=== PATIENT | female | born 2000 | race Caucasian/White ===

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

== ENCOUNTER 2019-01-03 03:00 | Outpatient (CLI) | payer BC ==
[2019-01-03 05:00] VITALS: BP 120/73; PULSE 76; RESP 16; TEMP 96.8
--- NOTE | 2019-01-08 02:15 | P.MSEPDOC ---
Presenting Problems - Arrival Data Date of Arrival on Unit: 01/03/19 Time of Arrival on Unit: 03:02 Mode of Transport: Stretcher - Complaint OB-Reason for Admission/Chief Complaint: Pain Comment: lower back and abd pain x5 days Medical History - Information : 1 Para: 0 Number of Living Children: 0 - Gestational Age Gestational Age by JUANJOSE (wks/days): 33 Weeks and 0 Days - History Complications: No Care Review of Systems - Review of Systems Constitutional: No problems Breast: No problems ENT: No problems Cardiovascular: No problems Respiratory: No problems Gastrointestinal: No problems Genitourinary: No problems Musculoskeletal: No problems Neurological: No problems Skin: No problems Vital Signs - Temperature Temperature: 96.8 F Temperature Source: Temporal Artery Scan - Pulse Right Sitting Brachial Pulse Rate: 76 Pulse Assessment Method: Automatic Cuff - Respirations Respiratory Rate: 16 Oxygen Delivery Method: Room Air O2 Sat by Pulse Oximetry: 98 - Blood Pressure Right Arm Sitting Blood Pressure: 120/73 Blood Pressure Mean: 88 Blood Pressure Source: Automatic Cuff Medical Screen Scoring (Pre) - Cervical Exam Dilation: 0 cm = 0 Membranes: Intact - Uterine Contractions Frequency: > 5 minutes apart = 1 Duration: > 40 seconds = 2 Intensity: N/A - Maternal Vital Signs Maternal Temperature: N/A Maternal Blood Pressure: N/A Signs of Preeclampsia: N/A Maternal Respirations: N/A - Maternal Trauma Maternal Trauma: N/A - Assessment - Baby A Baseline FHR: 120 Heart Rate - NICHD Category: Category I (Normal) = 0 NST: Reactive Position: N/A Station: N/A - Total Score - Baby A Total Score - Baby A: 3 - Total Score - Baby B Total Score - Baby B: 3 - Total Score - Baby C Total Score - Baby C: 3 - Level of Risk - Baby A Level of Risk - Baby A: Low (0-5) - Level of Risk - Baby B Level of Risk - Baby B: Low (0-5) - Level of Risk - Baby C Level of Risk - Baby C: Low (0-5) Physician Notification (Pre) - Physician Notified Physician Notified Date: 01/03/19 Physician Notified Time: 03:49 Physician/Practitioner Notifed:: dr grant Spoke With: dr grant New Order Received: Yes - Notification Comment Comment: check pt cervix in 1 hour from first exam, if closed discharge pt home with instructions to f/u with her own doctor by phone tomorrow and in office within one week. Disposition - Disposition OB Disposition: Discharge to home Discharge Date: 01/03/19 Discharge Time: 04:42 I agree with the RN Medical Screening Exam: Yes Risk & Benefit of care provided described in d/c instruction: Yes Diagnosis: UNSPECIFIED ABDOMINAL PAIN
== END 2019-01-03 04:42 | disposition home or self-care (01) ==
LOC: FBPOP 03:00
PROVIDERS: ATTEND Obstetrics & Gynecology
DX: O99.89 Other specified diseases and conditions complicating pregnancy, childbirth and the puerperium (principal); R10.9 Unspecified abdominal pain; Z3A.33 33 weeks gestation of pregnancy
CPT/HCPCS: 99203

== ENCOUNTER 2019-01-15 23:55 | Outpatient (CLI) | payer BC ==
[2019-01-16] MEDS ORDERED: CITRIC ACID-SODIUM CITRATE 15 ML CUP PO ONE (00:20)
[2019-01-16 00:53] VITALS: BP 124/70; PULSE 80; RESP 16; TEMP 97
--- NOTE | 2019-02-04 10:22 | P.MSEPDOC ---
Presenting Problems - Arrival Data Date of Arrival on Unit: 01/15/19 Time of Arrival on Unit: 23:55 Mode of Transport: Ambulatory - Complaint OB-Reason for Admission/Chief Complaint: Acute Nausea/Vomiting Comment: Patient presents with unrelieved heartburn, She is a DOM sees Dr. Gallardo out of [place], states she called her physician and her physician told her to come here to get her gallbladder checked out. Patient states she has not thrown up in a few hours. Medical History - Information : 1 Para: 0 Term: 0 : 0 Abortions: Spontaneous or Elective: 0 Number of Living Children: 0 - Gestational Age Gestational Age by JUANJOSE (wks/days): 34 Weeks and 6 Days - History Complications: Smoker Review of Systems - Review of Systems Constitutional: No problems Breast: No problems ENT: No problems Cardiovascular: No problems Respiratory: No problems Gastrointestinal: No problems Genitourinary: No problems Musculoskeletal: No problems Neurological: No problems Skin: No problems Vital Signs - Temperature Temperature: 97.0 F Temperature Source: Temporal Artery Scan - Pulse Pulse Oximetery Pulse Rate: 80 Pulse Assessment Method: Automatic Cuff - Respirations Respiratory Rate: 16 Oxygen Delivery Method: Room Air O2 Sat by Pulse Oximetry: 98 - Blood Pressure Sitting Blood Pressure: 124/70 Blood Pressure Mean: 88 Blood Pressure Source: Automatic Cuff Medical Screen Scoring (Pre) - Cervical Exam Dilation: Exam Deferred Effacement: Exam Deferred Membranes: Intact - Uterine Contractions Frequency: > 5 minutes apart = 1 Duration: > 40 seconds = 2 Intensity: N/A - Maternal Vital Signs Maternal Temperature: N/A Maternal Blood Pressure: N/A Signs of Preeclampsia: N/A Maternal Respirations: N/A - Maternal Trauma Maternal Trauma: N/A - Assessment - Baby A Baseline FHR: 125 Heart Rate - NICHD Category: Category I (Normal) = 0 NST: Reactive Position: N/A Station: N/A - Total Score - Baby A Total Score - Baby A: 3 - Total Score - Baby B Total Score - Baby B: 3 - Total Score - Baby C Total Score - Baby C: 3 - Level of Risk - Baby A Level of Risk - Baby A: Low (0-5) - Level of Risk - Baby B Level of Risk - Baby B: Low (0-5) - Level of Risk - Baby C Level of Risk - Baby C: Low (0-5) Physician Notification (Pre) - Physician Notified Physician Notified Date: 01/16/19 Physician Notified Time: 00:18 New Order Received: Yes - Notification Comment Comment: Give patient 15 ML po of bicitra and discharge patient home with instructions. Disposition - Disposition OB Disposition: Discharge to home, Written follow up instructions reviewed Discharge Date: 01/16/19 Discharge Time: 00:36 I agree with the RN Medical Screening Exam: No Risk & Benefit of care provided described in d/c instruction: No Diagnosis: 34 WEEKS GESTATION OF
== END 2019-01-16 00:36 | disposition home or self-care (01) ==
LOC: FBPOP 23:55
PROVIDERS: ATTEND Obstetrics & Gynecology
DX: O99.333 Smoking (tobacco) complicating pregnancy, third trimester (principal); Z3A.34 34 weeks gestation of pregnancy
CPT/HCPCS: 59025; 99213

== ENCOUNTER 2019-01-26 01:04 | Outpatient (CLI) | payer BC ==
[2019-01-26] MEDS ORDERED: ONDANSETRON 4 MG/2 ML VIAL IVP STA (01:28)
[2019-01-26] MEDS ORDERED: LACTATED RINGERS 1,000 ML IV SCH (01:30)
[2019-01-26 02:01] VITALS: BP 133/79; PULSE 84; TEMP 97.5
[2019-01-26 02:10] LABS: Appearance,Urine Cloudy (Clear); Bacteria,Urine Rare /hpf; Bilirubin,Urine Negative (Negative); Blood,Urine Negative (Negative); Color,Urine Yellow; Glucose,Urine (UA) Negative (Negative); Ketones,Urine Negative (Negative); Leukocyte Esterase,Urine Small (Negative); Mucus,Urine Rare /hpf; Nitrite,Urine Negative (Negative); Protein,Urine Trace (Negative); RBC,Urine 1 /hpf (0-5); Specific Gravity,Urine 1.028 (1.001-1.035); Squamous Epithelial Cell,Urine 6 /hpf (0-4); WBC,Urine 23 /hpf (0-5)
[2019-01-26 02:51] VITALS: RESP 18
--- NOTE | 2019-01-27 15:19 | P.MSEPDOC ---
Presenting Problems - Arrival Data Date of Arrival on Unit: 01/26/19 Time of Arrival on Unit: 01:04 Mode of Transport: Wheelchair - Complaint OB-Reason for Admission/Chief Complaint: Possible Onset of Labor Comment: Comment: pt presents to tr with c/o cntrx every 4-6 mins. pt is crying with cntrx. pt is. YOLANDA- aftab's Dr Beltran out of [facility]. Medical History - Information : 1 Para: 0 Term: 0 : 0 Abortions: Spontaneous or Elective: 0 Number of Living Children: 0 - Gestational Age Gestational Age by JUANJOSE (wks/days): 36 Weeks and 2 Days Review of Systems - Review of Systems Constitutional: No problems Breast: No problems ENT: No problems Cardiovascular: No problems Respiratory: No problems Gastrointestinal: Constipation Genitourinary: No problems Musculoskeletal: No problems Neurological: No problems Skin: No problems Comment: Patient states she has been vomiting for the past "couple of days" Vital Signs - Temperature Temperature: 97.5 F Temperature Source: Temporal Artery Scan - Pulse Right Brachial Pulse Rate: 84 Pulse Assessment Method: Automatic Cuff - Respirations Respiratory Rate: 18 Oxygen Delivery Method: Room Air O2 Sat by Pulse Oximetry: 97 - Blood Pressure Right Arm Blood Pressure: 133/79 Blood Pressure Mean: 97 Blood Pressure Source: Automatic Cuff Medical Screen Scoring (Pre) - Cervical Exam Dilation: 0 cm = 0 Membranes: Intact - Uterine Contractions Frequency: > 5 minutes apart = 1 Duration: N/A Intensity: N/A - Maternal Vital Signs Maternal Temperature: N/A Maternal Blood Pressure: N/A Signs of Preeclampsia: N/A Maternal Respirations: N/A - Maternal Trauma Maternal Trauma: N/A - Assessment - Baby A Baseline FHR: 125 Heart Rate - NICHD Category: Category I (Normal) = 0 NST: Reactive - Total Score - Baby A Total Score - Baby A: 1 - Total Score - Baby B Total Score - Baby B: 1 - Total Score - Baby C Total Score - Baby C: 1 - Level of Risk - Baby A Level of Risk - Baby A: Low (0-5) - Level of Risk - Baby B Level of Risk - Baby B: Low (0-5) - Level of Risk - Baby C Level of Risk - Baby C: Low (0-5) Physician Notification (Pre) - Physician Notified Physician Notified Date: 01/26/19 Physician Notified Time: Physician/Practitioner Notifed:: Dr. Goode Spoke With: Dr. Goode - Notification Comment Comment: Comment: RN spoke with Dr. Goode. Notified physician that patient presented to triage. with complaints of strong contractions since 23:00 roughly every 4-6 minutes. Patient. also states she has been vomiting for the past few days. Maternal vital signs are within. normal limits. Reactive NST reported. Cervical exam- closed and thick. RN instructed to. give 1L bolus of LR, 4mg of zofran IVP, collect a urine sample and re-check patients. cervix after one hour. Medical Screen Scoring (Post) - Cervical Exam Dilation: 0 cm = 0 Effacement: Exam Deferred Membranes: Intact - Uterine Contractions Frequency: N/A Duration: N/A Intensity: N/A - Maternal Vital Signs Maternal Temperature: N/A Maternal Blood Pressure: N/A Signs of Preeclampsia: N/A Maternal Respirations: N/A - Pain Assessment Pain Scale Used: Numeric (1 - 10) Pain Intensity: 0 - Maternal Trauma Maternal Trauma: N/A - Assessment - Baby A Heart Rate: 125 Heart Rate - NICHD Category: Category I (Normal) = 0 NST: Reactive - Total Score Total Score - Baby A: 0 Total Score - Baby B: 0 Total Score - Baby C: 0 - Post Treatment Level of Risk Post Treatment Level of Risk - Baby A: Low (0-5) Post Treatment Level of Risk - Baby B: Low (0-5) Post Treatment Level of Risk - Baby C: Low (0-5) Physician Notification (Post) - Physician Notified Physician Notified Date: 01/26/19 Physician Notified Time: : Physician/Practitioner Notified:: Dr. Goode Spoke With: Dr. Goode - Notification Comment Comment: Dr. Goode stated if patient was feeling better, if cervical exam remained unchanged, and contraction pain lessened after interventions then patient could be discharged. Patient felt much better, cervix was still closed and patient noted zero pain. Patient was discharged with instructions to keep follow up appointment with her normal doctor and return if symptoms worsened. Dicscharge instructions given and patient verbalized understanding. Disposition - Disposition Discharge Date: 01/26/19 Discharge Time: 02:45 I agree with the RN Medical Screening Exam: Yes Risk & Benefit of care provided described in d/c instruction: Yes Diagnosis: FALSE LABOR BEFORE 37 COMPLETED WEEKS OF GEST, THIRD TRI
== END 2019-01-26 02:45 | disposition home or self-care (01) ==
LOC: FBPOP 01:04
PROVIDERS: ATTEND Obstetrics & Gynecology Obstetrics
DX: O47.03 False labor before 37 completed weeks of gestation, third trimester (principal); Z3A.36 36 weeks gestation of pregnancy
CPT/HCPCS: 59025; 81001; 96365; 99213

== ENCOUNTER 2019-05-30 01:51 | Inpatient (IN) | payer BC, MEDICAID, OTHER ==
--- NOTE | 2019-05-30 02:16 | ED ---
Psych HPI - General Chief Complaint: Psychiatric Symptoms Stated Complaint: mental health Time Seen by Provider: 05/30/19 02:03 Source: patient, police Mode of arrival: ambulatory - History of Present Illness Initial Comments: 18-year-old female patient is brought to the emergency department today by the police for psychiatric evaluation. Patient states this morning she was quite upset due to her child's father cheating on her and not being helpful with the baby. States that she was writing her feelings down on paper and in the note she verbalizes wanting to and not be here anymore. Patient states she had no specific plan to take her life. States she does not currently feel suicidal or homicidal. She denies any alcohol or drug use. Patient states when she was 14 years old she did attempt to kill herself and was hospitalized. States she has not had any hospitalizations for mental health since that time. She does not currently take anything for her depression. Denies any self-harm behavior. Denies hallucinations. She denies any current physical symptoms or concerns. The note is present and was reviewed, there are multiple references to her . She states she no longer feels this way. - Related Data Home Medications Medication Instructions Recorded Confirmed No Known Home Medications 01/16/19 05/30/19 Allergies Allergy/AdvReac Type Severity Reaction Status Date / Time Penicillins Allergy Swelling Verified 05/30/19 06:32 Review of Systems ROS Statement: Those systems with pertinent positive or pertinent negative responses have been documented in the HPI. ROS Other: All systems not noted in ROS Statement are negative. Past Medical History Past Medical History: GERD/Reflux History of Any Multi-Drug Resistant Organisms: None Reported Past Surgical History: Adenoidectomy, Tonsillectomy Past Psychological History: ADD/ADHD, Anxiety, Bipolar, Depression Smoking Status: Current every day smoker Past Alcohol Use History: None Reported Past Drug Use History: Marijuana General Exam Limitations: no limitations General appearance: alert, in no apparent distress, other (Physical well- developed, well-nourished adult female patient in no acute distress. Vital signs upon presentation are temperature 97.9F, pulse 113, respirations 18, blood pressure 132/79, pulse ox 98% on room air.) Respiratory exam: Present: normal lung sounds bilaterally. Absent: respiratory distress, wheezes, rales, rhonchi, stridor Cardiovascular Exam: Present: regular rate, normal rhythm, normal heart sounds. Absent: systolic murmur, diastolic murmur, rubs, gallop, clicks GI/Abdominal exam: Present: soft, normal bowel sounds. Absent: distended, tenderness, guarding, rebound, rigid Neurological exam: Present: alert, oriented X3, CN II-XII intact Psychiatric exam: Present: anxious, other. Absent: homicidal ideation, suicidal ideation Skin exam: Present: warm, dry, intact, normal color. Absent: rash Course Vital Signs 05/30/19 05/30/19 01:54 04:31 Temperature 97.9 F Pulse Rate 113 H 92 Respiratory 18 17 Rate Blood Pressure 132/79 126/73 O2 Sat by Pulse 98 98 Oximetry Medical Decision Making - Medical Decision Making 18-year-old female patient presented to the emergency department today accompanied by police for evaluation after writing a suicide note. Physical examination is unremarkable. She is medically clear and will be evaluated by emergency psychiatric services. Dr. Hayden will take over care of patient at 0400. - Lab Data Result diagrams: 05/30/19 07:47 05/30/19 07:47 Lab Results 05/30/19 05/30/19 05/30/19 Range/Units 03:55 03:55 03:55 Urine Color Yellow Urine Appearance Clear (Clear) Urine pH 5.5 (5.0-8.0) Ur Specific [place] 1.032 (1.001-1.035) Urine Protein Trace H (Negative) Urine Glucose (UA) Negative (Negative) Urine Ketones Trace H (Negative) Urine Blood Negative (Negative) Urine Nitrite Negative (Negative) Urine Bilirubin Negative (Negative) Urine Urobilinogen 2.0 (<2.0) mg/dL Ur Leukocyte Esterase Negative (Negative) Urine HCG, Qual Not Detected (Not Detectd) Urine Opiates Screen Not Detected (NotDetected) Ur Oxycodone Screen Not Detected (NotDetected) Urine Methadone Screen Not Detected (NotDetected) Ur Propoxyphene Screen Not Detected (NotDetected) Ur Barbiturates Screen Not Detected (NotDetected) U Tricyclic Antidepress Not Detected (NotDetected) Ur Phencyclidine Scrn Not Detected (NotDetected) Ur Amphetamines Screen Detected H (NotDetected) U Methamphetamines Scrn Not Detected (NotDetected) U Benzodiazepines Scrn Not Detected (NotDetected) Urine Cocaine Screen Detected H (NotDetected) U Marijuana (THC) Screen Detected H (NotDetected) Disposition Clinical Impression: Suicidal ideation Disposition: ADMITTED IP TO THIS HOSP Condition: Serious - Out of Hospital Transfer - Req. Specs Out of Hospital Transfer - Requested Specifics: Psychiatric Non-ICU ([facility])
[2019-05-30 04:12] LABS: Cocaine Screen,Urine Detected (NotDetected); Phencyclidine Screen,Urine Not Detected (NotDetected); Urn Cannabinoid Scrn Detected (NotDetected)
[2019-05-30 04:13] LABS: Amphetamine Screen,Urine Detected (NotDetected); Barbiturate Screen,Urine Not Detected (NotDetected); Benzodiazepines Screen,Urine Not Detected (NotDetected); Methadone Screen, Urine Not Detected (NotDetected); Opiate Screen,Urine Not Detected (NotDetected); Oxycodone Screen, Urine Not Detected (NotDetected); Tricyclic Antidepressant,Urine Not Detected (NotDetected)
[2019-05-30] MEDS ORDERED: ZIPRASIDONE 20 MG VIAL IM PRN (06:27)
[2019-05-30] MEDS ORDERED: ACETAMINOPHEN TAB 325 MG TAB PO PRN (06:27)
[2019-05-30] MEDS ORDERED: MAGNESIUM HYDROXIDE 2,400 MG/10 ML CUP PO PRN (06:27)
[2019-05-30] MEDS ORDERED: MAG HYDROX/AL HYDROX/SIMETH 30 ML CUP PO PRN (06:27)
[2019-05-30 06:38] LABS: Appearance,Urine Clear (Clear); Bilirubin,Urine Negative (Negative); Blood,Urine Negative (Negative); Color,Urine Yellow; Glucose,Urine (UA) Negative (Negative); Ketones,Urine Trace (Negative); Leukocyte Esterase,Urine Negative (Negative); Nitrite,Urine Negative (Negative); PH, Urine 5.5 (5.0-8.0); Protein,Urine Trace (Negative); Specific Gravity,Urine 1.032 (1.001-1.035)
[2019-05-30 08:14] LABS: Basophils % (A) 0 %; Eosinophils # (A) 0.3 k/uL (0-0.7); Eosinophils % (A) 3 %; HCT 47.9 % (34.0-46.0); HGB 15.4 gm/dL (11.4-16.0); Lymphocytes # (A) 2.3 k/uL (1.0-4.8); Lymphocytes % (A) 27 %; MCHC 32.2 g/dL (31.0-37.0); MCV 89.8 fL (80.0-100.0); Mean Platelet Volume 7.7; Monocytes # (A) 0.5 k/uL (0-1.0); Monocytes % (A) 5 %; Neutrophils # (A) 5.5 k/uL (1.3-7.7); Neutrophils % (A) 63 %; Platelet Count 270 k/uL (150-450); RBC 5.34 m/uL (3.80-5.40); RDW 11.9 % (11.5-15.5); WBC 8.7 k/uL (4.0-11.0)
[2019-05-30 08:27] LABS: ALT 18 U/L (4-34); AST 18 U/L (14-36); African American GFR (CKD) >90 (>60 ml/min/1.73 sqM); Albumin 4.9 g/dL (3.5-5.0); Alkaline Phosphatase 57 U/L (38-126); Anion Gap 12 mmol/L; Bilirubin, Delta 0.2 mg/dL (0.0-0.2); Bilirubin,Unconjugated 0.8 mg/dL (0.0-1.1); Blood Urea Nitrogen 15 mg/dL (7-17); Calcium 10.2 mg/dL (8.4-10.2); Carbon Dioxide 26 mmol/L (22-30); Chloride 105 mmol/L (98-107); Cholesterol 174 mg/dL (<200); Glucose 97 mg/dL (74-99); HDL Cholesterol 56 mg/dL (40-60); LDL Cholesterol,Calculated 108 mg/dL (0-99); Non-African American GFR(CKD) >90 (>60 ml/min/1.73 sqM); Potassium 4.4 mmol/L (3.5-5.1); Sodium 143 mmol/L (137-145); Total Protein 7.7 g/dL (6.3-8.2); Triglycerides 52 mg/dL (<150)
[2019-05-30] MEDS: NICOTINE 14MG/24HR PATCH TRANSDERM SCH (09:21)
[2019-05-30 13:07] LABS: Hemoglobin A1C 4.9 % (4.0-6.0)
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
[2019-05-30] MEDS: OXcarbazepine 150 MG TAB PO SCH ×2 (14:31→21:48)
--- NOTE | 2019-05-31 07:41 | CONS ---
CONSULTATION DATE OF SERVICE: . REASON FOR CONSULTATION: Substance abuse and medications requested by Psychiatry. HISTORY OF PRESENT ILLNESS: This is a 18-year-old woman with a past medical history of multiple medical problems including GERD, history of ADD, ADHD, anxiety, bipolar depression, nicotine dependence, cocaine, marijuana, being followed by Dr. Torre. The patient admitted for psychiatric evaluation. There is no history of fever, rigors. No history of headache, loss of consciousness. No chest pain, palpitations, hematochezia or melena at this time. PAST MEDICAL HISTORY: History of GERD, history of the renal tumor, ADD, ADHD, anxiety, bipolar depression. MEDICATIONS: Prior to admission home medications are none. ALLERGIES: PENICILLIN. FAMILY HISTORY: History of psychiatric symptoms in the family. SOCIAL HISTORY: History of smoking. Occasional alcohol intake. THC, cocaine recently. REVIEW OF SYSTEMS: ENT: No diminished vision. CARDIOVASCULAR SYSTEM: No angina. RESPIRATION: No cough. GI: No nausea. : No dysuria. NERVOUS SYSTEM: No numbness or weakness. ALLERGY/IMMUNOLOGY: No asthma or hay fever. MUSCULOSKELETAL: As mentioned earlier: HEMATOLOGY: No history of anemia. ENDOCRINE: No history of diabetes or hypothyroidism. CONSTITUTIONAL: As mentioned earlier. DERMATOLOGY: Negative. RHEUMATOLOGY: Negative. PSYCHIATRY: As mentioned earlier. NERVOUS SYSTEM: Cranial nerves secondary are grossly intact, eye movements are full in all directions. No facial deviation. No sensory abnormalities. Moves all 4 limbs. Power is normal. The gait is normal. No sensory abnormalities. No signs of cerebellar dysfunction. No sensory abnormalities. The patient is alert, oriented x3. Pulse is 110, blood pressure 108/79, respiration 16, temperature 98 degrees, pulse ox 97% on room air. HEENT: Conjunctivae normal. Oral mucosa moist. NECK: No jugular venous distension. No lymph node enlargement. CARDIOVASCULAR SYSTEM: S1, S2, muffled, no S3, no S4. RESPIRATORY: Breath sounds diminished at the bases, no rhonchi, no crackles. ABDOMEN: Soft, nontender. No mass palpable. LEGS: No edema, no swelling. NERVOUS SYSTEM: Higher functions as mentioned earlier. Moves all 4 limbs, no focal motor deficits. LYMPHATICS: No lymph node enlargement in the neck or axillae. SKIN: No rashes. JOINTS: No active deformity or arthropathy. LABS: WBC is 8.6, hemoglobin is 15.4. CMP within normal limits. ALT is 108. ASSESSMENT: 1. Bipolar 2 disorder with mixed episode. 2. History of polysubstance abuse substance abuse including cocaine, marijuana. 3. History of gastroesophageal reflux disease. 4. History of ADD, ADHD, anxiety, bipolar depression. 5. History of nicotine dependence. 6. High LDL. 7. FULL CODE. RECOMMENDATION: In this 18-year-old woman who presented with multiple medical problems, at this time I recommend to continue current medications, symptomatic treatment, recommend to observe any withdrawal symptoms. Otherwise, continue with the current medications. The patient may be asked to follow with Dr. Torre closely after discharge. The basic labs have been reviewed and negative except a slightly elevated LDL of 4 and continue which might need outpatient followup on a regular basis. Otherwise, will follow the patient closely with you and patient may be asked to follow with Dr. Torre closely after discharge. Thank you letting us participate with this patient. Otherwise will follow the patient closely with you. The patient may be asked to follow with Dr. Torre closely after discharge. NICOLE / VALN: [id number] / RODOLFO
[2019-05-31] MEDS: OXcarbazepine 150 MG TAB PO SCH ×2 (09:32→20:19)
[2019-05-31] MEDS: NICOTINE 14MG/24HR PATCH TRANSDERM SCH (09:32)
--- NOTE | 2019-05-31 13:27 | P.PN ---
Subjective Progress Note Date: 05/31/19 Chief complaint: "You are keeping me from my child" Subjective: The patient has been seen today as follow-up, chart reviewed, case discussed with the treatment team. The patient reports feeling angry and upset about being in the hospital and his demanding to be discharged. The patient was tearful in upset during the interview. She claims that she does not have any depression or anxiety but appears to be pretty anxious during the session. The patient reports fair sleep and appetite. She denies any suicidal or homicidal ideations at this time and tends to minimize her symptoms. The patient tends to minimize the suicidal note that she wrote. The patient reports that she is afraid she is going to have a breakdown on the unit if she is safe from her child. The patient denies any auditory or visual hallucinations. Also the patient denies any paranoid ideation. Objective - Vital Signs Vital signs: Vital Signs Temp 98.2 F 05/31/19 06:34 Pulse 78 05/31/19 06:34 Resp 16 05/31/19 06:34 BP 107/61 05/31/19 06:34 Pulse Ox 98 05/31/19 06:34 Intake & Output 05/30/19 05/31/19 05/31/19 18:59 06:59 18:59 Weight 67.33 kg - Exam Mental Status Exam: General Appearance: Patient appears to be stated age is alert, directable. fPatient has fair eye contact. Behavior: Patient is irritable, tearful and anxious during the session. Speech: Patient's speech is rapid and pressured Mood/Affect: Patient reports their mood/anxiety is depressed, affect is congrue nt Suicidality/Homicidality: Patient denies having any homicidal or suicidal ideation. Perceptions: Patient reports auditory hallucinations. Though content/process: Paranoia Memory and concentration: AOX3, grossly intact for the purposes of this session. Judgment and insight: Limited - Labs CBC & Chem 7: 05/30/19 07:47 05/30/19 07:47 Assessment and Plan Assessment: Bipolar 2 disorder mixed episode Plan: IMPRESSIONS: Bipolar 2 disorder PLAN: Admit to the mental helth unit. Placed on suicidal precautions 1:1 support and psychotherapy Continue [Trileptal 150 mg by mouth twice a day] Milieu therapy including PT, OT and GT. Adjust medications and monitor closely for the patient's symptoms getting worse and /or possible side effects on medications.
[2019-06-01] MEDS: NICOTINE 14MG/24HR PATCH TRANSDERM SCH (09:12)
[2019-06-01] MEDS: OXcarbazepine 150 MG TAB PO SCH ×2 (09:13→20:50)
--- NOTE | 2019-06-01 14:13 | P.PN ---
Subjective Progress Note Date: 06/01/19 The patient seen and chart reviewed. The patient reports doing a little bit better today. The patient apologized for her behavior yesterday. She remained focused on getting discharged and insists on being home with her child. The patient reports that her mother is supportive who is taking care of her baby. The patient reports fair sleep and appetite. She attends milieu therapy. The patient is up and about and visible on the unit. The patient denies any crying spells since yesterday. The patient stated mood is okay and affect remained constricted. She denies any auditory or visual hallucinations. She denies any active suicidal or homicidal ideations at this time. The patient is cooperative and compliant with the medications and denies any side effects at this time. Objective - Vital Signs Vital signs: Vital Signs Temp 98.1 F 06/01/19 06:39 Pulse 82 06/01/19 06:39 Resp 16 06/01/19 06:39 BP 110/53 06/01/19 06:39 Pulse Ox 98 05/31/19 06:34 - Exam Mental Status Exam: General Appearance: Patient appears to be stated age is alert, directable. fPatient has fair eye contact. Behavior: Sitting comfortably during the session Speech: Patient's speech is normal tone and volume Mood/Affect: Patient reports their mood/anxiety is OK, affect is congruent Suicidality/Homicidality: Patient denies having any homicidal or suicidal ideation. Perceptions: Patient reports auditory or visual hallucinations. Though content/process: Denies any paranoia or delusional thinking. Memory and concentration: AOX3, grossly intact for the purposes of this session. Judgment and insight: Limited - Labs CBC & Chem 7: 05/30/19 07:47 05/30/19 07:47 Assessment and Plan Assessment: Bipolar 2 disorder mixed episode Plan: IMPRESSIONS: Bipolar 2 disorder PLAN: Admit to the mental helth unit. Placed on suicidal precautions 1:1 support and psychotherapy Continue [Trileptal 150 mg by mouth twice a day] Milieu therapy including PT, OT and GT. Adjust medications and monitor closely for the patient's symptoms getting worse and /or possible side effects on medications.
[2019-06-02] MEDS: NICOTINE 14MG/24HR PATCH TRANSDERM SCH (08:12)
[2019-06-02] MEDS: OXcarbazepine 150 MG TAB PO SCH ×2 (08:13→20:54)
--- NOTE | 2019-06-02 12:10 | P.PN ---
Subjective Progress Note Date: 06/02/19 The patient seen and chart reviewed. The patient continues to report improvement in her mood and behavior. She denies any crying spells. She is cooperative and compliant with her treatment. The patient reports good sleep and appetite. She remained anxious to leave the unit and be discharged but has rescinded her ITT. On the patient's speech was goal directed and logical. She denies any auditory or visual hallucinations. She denies any suicidal or homicidal ideations at this time. The patient has been tolerating medications without any side effects. Discussed discharge plan. Recommend family meeting and referrals for psychiatric follow-up. Objective - Vital Signs Vital signs: Vital Signs Temp 97.9 F 06/02/19 06:41 Pulse 94 06/02/19 08:15 Resp 20 06/02/19 08:15 BP 117/74 06/02/19 08:15 Pulse Ox 98 05/31/19 06:34 Intake & Output 06/01/19 06/02/19 06/02/19 18:59 06:59 18:59 Weight 69.4 kg - Exam Mental Status Exam: General Appearance: Patient appears to be stated age is alert, directable. fPatient has fair eye contact. Behavior: Sitting comfortably during the session Speech: Patient's speech is normal tone and volume Mood/Affect: Patient reports their mood/anxiety is OK, affect is congruent Suicidality/Homicidality: Patient denies having any homicidal or suicidal ideation. Perceptions: Patient reports auditory or visual hallucinations. Though content/process: Denies any paranoia or delusional thinking. Memory and concentration: AOX3, grossly intact for the purposes of this session. Judgment and insight: Limited - Labs CBC & Chem 7: 05/30/19 07:47 05/30/19 07:47 Assessment and Plan Assessment: IMPRESSIONS: Bipolar 2 disorder Plan: PLAN: Admit to the mental helth unit. Placed on suicidal precautions 1:1 support and psychotherapy Continue [Trileptal 150 mg by mouth twice a day] Milieu therapy including PT, OT and GT. Adjust medications and monitor closely for the patient's symptoms getting worse and /or possible side effects on medications. May discharge in a.m. if stable.
[2019-06-03] MEDS: NICOTINE 14MG/24HR PATCH TRANSDERM SCH (08:33)
[2019-06-03] MEDS: OXcarbazepine 150 MG TAB PO SCH ×2 (08:33→21:20)
--- NOTE | 2019-06-03 16:54 | P.PN ---
Subjective Progress Note Date: 06/03/19 Principal diagnosis: Bipolar 2 disorder I reviewed the medical record, interviewed the patient and discussed her treatment and treatment plan during team meeting. She is a 18-year-old single female who has a [id number] infant. She presented a psychiatric unit voluntarily with complaints of suicidal ideation after discovering that the father of her child was unfaithful. She hasn't expressed suicidal thoughts and writing and her mother brought her to the emergency room. Her history is significant for a suicide attempt or attempts when she was 14 years old. She reported that she had poor hospitalizations during this period. A suicide attempts including overdose and cutting. She denied suicidal ideation, plan or intent. She requested be discharged home complaining that she misses her infant son. She denied that she intended to act on her suicidal thoughts and feelings. She expressed her interest in resuming outpatient mental health services to address her ongoing depression and difficulties managing her emotions. Objective - Vital Signs Vital signs: Vital Signs Temp 98.1 F 06/03/19 06:28 Pulse 70 06/03/19 06:28 Resp 16 06/03/19 06:28 BP 115/57 06/03/19 06:28 Pulse Ox 98 05/31/19 06:34 Intake & Output 06/02/19 06/03/19 06/03/19 18:59 06:59 18:59 Weight 69.4 kg - Exam She presented as a casually groomed young female who was pleasant on approach. She made eye contact and attended to the interview. She had no distinguishing features or prominent physical abnormalities. She had a bright facial expression. She was alert and oriented to person, place and time. She showed no abnormality of psychomotor activity. Her speech was spontaneous with normal rate, rhythm and volume. Her affect was slightly blunted but stable and appropriate. She denied suicidal ideation, wishes or homicidal ideation. She denied feeling hopeless, helpless or worthless. She did not express ideas reference, paranoid ideation or delusions. Her thinking was abstract and associations were coherent and logical. She denied hallucinations and did not appear to be responding to internal stimuli. - Labs CBC & Chem 7: 05/30/19 07:47 05/30/19 07:47 Assessment and Plan Assessment: She is a young woman who is 10 months postterm. She presented with suicidal ideation in the context of disturbances in an interpersonal relationship. She has a complicated history with multiple prior psychiatric hospitalizations related to suicidal ideation, attempts and gestures. She is currently denying depression, symptoms of depression or thoughts of or suicide. Plan: Continue inpatient hospitalization. Continue seeing precautions. Encourage continued participation in therapeutic groups and activities. Continue Trileptal 150 mg by mouth twice a day for mood stabilization. Continue Geodon 2 0 mg IM twice a day when necessary for agitation or aggression. Nicotine replacement. Evaluate clinical status response to treatment on a daily basis. sort line worker to coordinate discharge and aftercare services.
[2019-06-04 06:57] VITALS: BP 96/57; PULSE 64; RESP 17; TEMP 98.7
[2019-06-04] MEDS: NICOTINE 14MG/24HR PATCH TRANSDERM SCH (08:23)
[2019-06-04] MEDS: OXcarbazepine 150 MG TAB PO SCH (08:23)
--- NOTE | 2019-06-06 08:32 | P.DS ---
Providers Date of admission: 05/30/19 06:14 Attending physician: Adan Donaldson MD Consults: 05/30/19 06:27 Consult Physician Routine Consulting Provider: Pricila Reich Consult Reason/Comments: For H & P for Medical Follow Up Do you want consulting provider notified?: Yes Primary care physician: Homar Torre - Discharge Diagnosis(es) (1) Bipolar 2 disorder Status: Chronic Priority: Medium (2) Tobacco abuse Status: Chronic Priority: Medium (3) History of ADHD Status: Chronic Priority: Low (4) Suicidal ideation Status: Resolved Priority: Low Hospital Course: She is a 18-year-old single female 10 months post term who presented to the emergency department with complaints of suicidal ideation. She apparently became distressed when she discovered that her boyfriend was unfaithful. She became angry and decided to ventilate her feelings by "writing them down." Her boyfriend's discovered her notes where she was describing suicidal ideation and called the police. At the time of admission she denied having suicidal thoughts and maintained she was "ventilating her feelings." She denied persistent feelings of depression prior to this incident. Her history is significant for several prior psychiatric hospitalizations as an adolescent involving suicide attempts. She has been treated with multiple psychotropic medications has diagnoses of mood disorder, bipolar 2 disorder and ADHD. We admitted her to the psychiatric unit initially under the care of Dr. Montoya. We provided a comprehensive biopsychosocial assessment. The specialty development consultant web application dev specialist completed initial physical exam and medical history. He diagnosis nicotine use disorder, and a high LDL. We started Trileptal 150 mg by mouth twice a day treatment of her mood disorder and prescribed Habitrol for nicotine replacement therapy. She participated in therapeutic groups and activities. She posed no management problem and demonstrated no episodes of behavioral dyscontrol. She denied suicidal ideation, intent or plan on admission and throughout this hospitalization. She alleged that she never intended to follow through with her suicidal thoughts and believes that her now ex-boyfriend overreacted to her distress. She experienced no adverse effects to Trileptal. The time of discharge she presented as a casually groomed young female who was pleasant on approach. She made eye contact and attended to the interview. She had a bright facial expression. She showed no abnormality of psychomotor activity. Her speech was spontaneous with normal rate, rhythm and volume. Affect was stable, bright and appropriate. She denied suicidal ideation, wishes or homicidal ideation. She denied feeling hopeless, helpless or worthless. She did not express ideas reference, paranoid ideation or delusions. Her thinking was abstract and associations were coherent and logical. She denied hallucinations did not appear to be responding to internal stimuli. Patient Condition at Discharge: Serious Plan - Discharge Summary New Discharge Prescriptions: New Nicotine 14Mg/24Hr Patch [Habitrol] 1 patch TRANSDERM DAILY 14 Days #14 patch OXcarbazepine [Trileptal] 150 mg PO BID 30 Days #60 tab Discharge Medication List Nicotine 14Mg/24Hr Patch [Habitrol] 1 patch TRANSDERM DAILY 14 Days #14 patch 06/04/19 [Rx] OXcarbazepine [Trileptal] 150 mg PO BID 30 Days #60 tab 06/04/19 [Rx] Follow up Appointment(s)/Referral(s): intake,intake [Other] - 06/10/19 12:30 pm Homar Torre III, MD [Primary Care Provider] - 1-2 days Patient Instructions/Handouts: Depression (DC) Activity/Diet/Wound Care/Special Instructions: Activity and diet as tolerated. Avoid the use of street drugs and alcohol. Take all medications as prescribed. When you are in need of refills on your medications please contact your medical provider and/or outpatient psychiatrist to have this done. Please go to scheduled outpatient appointment for aftercare treatment. If symptoms return or become worse, call the crisis line at and/or go to the nearest emergency room for evaluation. Discharge Disposition: HOME SELF-CARE
== END 2019-06-04 11:54 | disposition home or self-care (01) | DRG 885 ==
LOC: EC 01:51 → 3MHU 06:14
PROVIDERS: ADMIT Psychiatry & Neurology Psychiatry; ATTEND Psychiatry & Neurology Psychiatry
DX: F31.81 Bipolar II disorder (principal); R45.851 Suicidal ideations; F17.210 Nicotine dependence, cigarettes, uncomplicated; K21.9 Gastro-esophageal reflux disease without esophagitis; M41.9 Scoliosis, unspecified; Z79.899 Other long term (current) drug therapy; Z81.1 Family history of alcohol abuse and dependence; Z81.8 Family history of other mental and behavioral disorders; Z62.810 Personal history of physical and sexual abuse in childhood; R74.0 Nonspecific elevation of levels of transaminase and lactic acid dehydrogenase [LDH]; F14.10 Cocaine abuse, uncomplicated; Z88.0 Allergy status to penicillin; F41.9 Anxiety disorder, unspecified; F90.9 Attention-deficit hyperactivity disorder, unspecified type
CPT/HCPCS: 80053; 80061; 80306; 81003; 81025; 82075; 82248; 83036; 84443; 85025; 99285

== ENCOUNTER 2021-03-16 20:27 | Emergency (ER) | payer OTHER ==
[2021-03-16 20:40] VITALS: TEMP 98.5
[2021-03-16] MEDS ORDERED: SODIUM CHLORIDE 0.9% 1,000 ML IV STA (21:30)
--- NOTE | 2021-03-16 21:33 | ED ---
General Adult HPI - General Chief complaint: Dizziness Stated complaint: Dizzy Time Seen by Provider: 03/16/21 21:25 Source: patient, RN notes reviewed Mode of arrival: ambulatory Limitations: no limitations - History of Present Illness Initial comments: This is a well-appearing 20-year-old female, alert and oriented 4 presents to the emergency room with complaints of dizziness since yesterday. She states that she has also had an episode of nausea and no vomiting. She thought that maybe she was dehydrated. She also states that she did drink alcohol on an empty stomach and may be a cause this is not sure. She does smoke half a pack cigarettes a day she also occasionally smokes marijuana denies any alcohol or illegal drug use. She has no medical history no medications on a daily basis. Her last menstrual period was 2 weeks ago she has not been sexually active in the past 2 months. -: days(s) (2) Severity scale (1-10): 0 Associated Symptoms: headaches, nausea/vomiting Treatments Prior to Arrival: none - Related Data Home Medications Medication Instructions Recorded Confirmed FLUoxetine HCL [PROzac] 20 mg PO DAILY 03/16/21 03/16/21 Lisdexamfetamine Dimesylate 70 mg PO DAILY 03/16/21 03/16/21 [Vyvanse] OXcarbazepine [Trileptal] 300 mg PO BID 03/16/21 03/16/21 Allergies Allergy/AdvReac Type Severity Reaction Status Date / Time Penicillins Allergy Swelling Verified 03/16/21 22:27 Review of Systems ROS Statement: Those systems with pertinent positive or pertinent negative responses have been documented in the HPI. ROS Other: All systems not noted in ROS Statement are negative. Past Medical History Past Medical History: GERD/Reflux History of Any Multi-Drug Resistant Organisms: None Reported Past Surgical History: Adenoidectomy, Tonsillectomy Past Psychological History: ADD/ADHD, Anxiety, Bipolar, Depression Smoking Status: Current every day smoker Past Alcohol Use History: None Reported Past Drug Use History: Marijuana General Exam Limitations: no limitations General appearance: alert, in no apparent distress Head exam: Present: atraumatic, normocephalic, normal inspection Eye exam: Present: normal appearance, PERRL, EOMI. Absent: scleral icterus, conjunctival injection, periorbital swelling Pupils: Present: normal accommodation ENT exam: Present: normal exam, normal oropharynx, mucous membranes moist Neck exam: Present: normal inspection, full ROM. Absent: tenderness, meningismus, lymphadenopathy Respiratory exam: Present: normal lung sounds bilaterally. Absent: respiratory distress, wheezes, rales, rhonchi, stridor Cardiovascular Exam: Present: regular rate, normal rhythm, normal heart sounds. Absent: systolic murmur, diastolic murmur, rubs, gallop, clicks GI/Abdominal exam: Present: soft, normal bowel sounds. Absent: distended, tenderness, guarding, rebound, rigid Extremities exam: Present: normal inspection, full ROM, normal capillary refill. Absent: tenderness, pedal edema, joint swelling, calf tenderness Back exam: Present: normal inspection, full ROM. Absent: tenderness, CVA tenderness (R), CVA tenderness (L), rash noted Neurological exam: Present: alert, oriented X3 Psychiatric exam: Present: normal affect, normal mood Skin exam: Present: warm, dry, intact, normal color. Absent: rash Course Vital Signs 03/16/21 03/16/21 03/17/21 20:37 23:00 00:46 Temperature 98.5 F Pulse Rate 72 62 63 Respiratory 18 16 16 Rate Blood Pressure 120/71 124/75 116/65 O2 Sat by Pulse 97 97 97 Oximetry EKG Findings - EKG Results: EKG: sinus rhythm (Ventricular rate 56, [place] interval of 0.122, QRS 0.94, QTC .389) Medical Decision Making - Medical Decision Making EKG shows sinus bradycardia ventricular rate 56. Hemoglobin and hematocrit are stable, glucose is 101, urine is negative for infection. Urine test is negative. Electrolytes are unremarkable. Patient states that she feels better after a liter of normal saline. She'll be discharged home to follow up with her primary care doctor. Instructed to return to the emergency room with any new or worsening symptoms. - Lab Data Result diagrams: 03/16/21 22:17 03/16/21 22:17 Lab Results 03/16/21 03/16/21 03/16/21 Range/Units 22:17 22:17 22:38 WBC 10.1 (3.8-10.6) k/uL RBC 4.56 (3.80-5.40) m/uL Hgb 14.2 (11.4-16.0) gm/dL Hct 42.8 (34.0-46.0) % MCV 93.8 (80.0-100.0) fL MCH 31.2 (25.0-35.0) pg MCHC 33.3 (31.0-37.0) g/dL RDW 11.7 (11.5-15.5) % Plt Count 225 (150-450) k/uL MPV 8.3 Neutrophils % 61 % Lymphocytes % 31 % Monocytes % 4 % Eosinophils % 3 % Basophils % 1 % Neutrophils # 6.1 (1.3-7.7) k/uL Lymphocytes # 3.1 (1.0-4.8) k/uL Monocytes # 0.4 (0-1.0) k/uL Eosinophils # 0.3 (0-0.7) k/uL Basophils # 0.1 (0-0.2) k/uL Sodium 139 (137-145) mmol/L Potassium 4.3 (3.5-5.1) mmol/L Chloride 107 (98-107) mmol/L Carbon Dioxide 24 (22-30) mmol/L Anion Gap 8 mmol/L BUN 17 (7-17) mg/dL Creatinine 0.82 (0.52-1.04) mg/dL Est GFR (CKD-EPI)AfAm >90 (>60 ml/min/1.73 sqM) Est GFR (CKD-EPI)NonAf >90 (>60 ml/min/1.73 sqM) Glucose 101 H (74-99) mg/dL Calcium 9.4 (8.4-10.2) mg/dL Urine Color Yellow Urine Appearance Turbid H (Clear) Urine pH 7.0 (5.0-8.0) Ur Specific [place] 1.019 (1.001-1.035) Urine Protein Negative (Negative) Urine Glucose (UA) Negative (Negative) Urine Ketones Negative (Negative) Urine Blood Negative (Negative) Urine Nitrite Negative (Negative) Urine Bilirubin Negative (Negative) Urine Urobilinogen <2.0 (<2.0) mg/dL Ur Leukocyte Esterase Negative (Negative) Ur Squamous Epith Cells 2 (0-4) /hpf Amorphous Sediment Rare H (None) /hpf Urine Bacteria Rare H (None) /hpf Urine HCG, Qual (Not Detectd) 03/16/21 Range/Units 22:38 WBC (3.8-10.6) k/uL RBC (3.80-5.40) m/uL Hgb (11.4-16.0) gm/dL Hct (34.0-46.0) % MCV (80.0-100.0) fL MCH (25.0-35.0) pg MCHC (31.0-37.0) g/dL RDW (11.5-15.5) % Plt Count (150-450) k/uL MPV Neutrophils % % Lymphocytes % % Monocytes % % Eosinophils % % Basophils % % Neutrophils # (1.3-7.7) k/uL Lymphocytes # (1.0-4.8) k/uL Monocytes # (0-1.0) k/uL Eosinophils # (0-0.7) k/uL Basophils # (0-0.2) k/uL Sodium (137-145) mmol/L Potassium (3.5-5.1) mmol/L Chloride (98-107) mmol/L Carbon Dioxide (22-30) mmol/L Anion Gap mmol/L BUN (7-17) mg/dL Creatinine (0.52-1.04) mg/dL Est GFR (CKD-EPI)AfAm (>60 ml/min/1.73 sqM) Est GFR (CKD-EPI)NonAf (>60 ml/min/1.73 sqM) Glucose (74-99) mg/dL Calcium (8.4-10.2) mg/dL Urine Color Urine Appearance (Clear) Urine pH (5.0-8.0) Ur Specific [place] (1.001-1.035) Urine Protein (Negative) Urine Glucose (UA) (Negative) Urine Ketones (Negative) Urine Blood (Negative) Urine Nitrite (Negative) Urine Bilirubin (Negative) Urine Urobilinogen (<2.0) mg/dL Ur Leukocyte Esterase (Negative) Ur Squamous Epith Cells (0-4) /hpf Amorphous Sediment (None) /hpf Urine Bacteria (None) /hpf Urine HCG, Qual Not Detected (Not Detectd) Disposition Clinical Impression: Dizziness Disposition: HOME SELF-CARE Condition: Good Instructions (If sedation given, give patient instructions): Dizziness (ED) Additional Instructions: Increase your fluid intake. Follow-up with the primary care doctor in 1 week. Return to the emergency room with any new or worsening symptoms. Is patient prescribed a controlled substance at d/c from ED?: No Referrals: Nonstaff,Physician [REFERRING] - 1-2 days Time of Disposition: 00:27
[2021-03-16 22:28] LABS: Basophils # (A) 0.1 k/uL (0-0.2); Basophils % (A) 1 %; Eosinophils # (A) 0.3 k/uL (0-0.7); Eosinophils % (A) 3 %; HCT 42.8 % (34.0-46.0); HGB 14.2 gm/dL (11.4-16.0); Lymphocytes # (A) 3.1 k/uL (1.0-4.8); Lymphocytes % (A) 31 %; MCH 31.2 pg (25.0-35.0); MCHC 33.3 g/dL (31.0-37.0); MCV 93.8 fL (80.0-100.0); Mean Platelet Volume 8.3; Monocytes # (A) 0.4 k/uL (0-1.0); Monocytes % (A) 4 %; Neutrophils # (A) 6.1 k/uL (1.3-7.7); Neutrophils % (A) 61 %; Platelet Count 225 k/uL (150-450); RBC 4.56 m/uL (3.80-5.40); RDW 11.7 % (11.5-15.5); WBC 10.1 k/uL (3.8-10.6)
[2021-03-16 22:40] LABS: African American GFR (CKD) >90 (>60 ml/min/1.73 sqM); Anion Gap 8 mmol/L; Blood Urea Nitrogen 17 mg/dL (7-17); Calcium 9.4 mg/dL (8.4-10.2); Carbon Dioxide 24 mmol/L (22-30); Chloride 107 mmol/L (98-107); Glucose 101 mg/dL (74-99); Non-African American GFR(CKD) >90 (>60 ml/min/1.73 sqM); Potassium 4.3 mmol/L (3.5-5.1); Sodium 139 mmol/L (137-145)
[2021-03-16 22:53] LABS: Amorphous Sediment,Urine Rare /hpf; Appearance,Urine Turbid (Clear); Bacteria,Urine Rare /hpf; Bilirubin,Urine Negative (Negative); Blood,Urine Negative (Negative); Color,Urine Yellow; Glucose,Urine (UA) Negative (Negative); Ketones,Urine Negative (Negative); Leukocyte Esterase,Urine Negative (Negative); Nitrite,Urine Negative (Negative); Protein,Urine Negative (Negative); Specific Gravity,Urine 1.019 (1.001-1.035); Squamous Epithelial Cell,Urine 2 /hpf (0-4); Urobilinogen,Urine <2.0 mg/dL (<2.0)
[2021-03-16 23:22] VITALS: RESP 16
[2021-03-17 00:47] VITALS: BP 116/65; PULSE 63
== END 2021-03-17 00:47 | disposition home or self-care (01) ==
LOC: EC 20:27
DX: R42 Dizziness and giddiness (principal); R51.9 Headache, unspecified; R11.2 Nausea with vomiting, unspecified; Z88.0 Allergy status to penicillin; F17.200 Nicotine dependence, unspecified, uncomplicated
CPT/HCPCS: 36415; 80048; 81001; 81025; 85025; 93005; 96360; 99284

== ENCOUNTER → 2021-04-18 | Outpatient (CLI) | payer OTHER | END | disposition home or self-care (01) | LOC: LABMAIN 02:20 | PROVIDERS: ATTEND Nurse Practitioner | DX: R05.9 Cough, unspecified (principal) | CPT/HCPCS: 87635 ==

== ENCOUNTER 2021-06-18 00:21 | Emergency (ER) | payer OTHER ==
[2021-06-18 00:43] VITALS: BP 114/65; PULSE 98; RESP 20; TEMP 97.9
[2021-06-18] MEDS ORDERED: ONDANSETRON ODT 4 MG TAB PO STA (02:05)
--- NOTE | 2021-06-18 02:20 | ED ---
Nausea/Vomiting/Diarrhea HPI - General Chief complaint: Nausea/Vomiting/Diarrhea Stated complaint: NVD Time Seen by Provider: 06/18/21 01:46 Source: patient, RN notes reviewed Mode of arrival: ambulatory Limitations: no limitations - History of Present Illness Initial comments: This is a pleasant 20-year-old female presents to emergency department complaining of nausea, vomiting, and a few episodes of diarrhea. Exposed to her son who has similar symptoms. Patient states she also has other family members with vomiting and diarrhea as well. Patient has had a mild cough. Patient did have a COVID-19 back in March. She has not received the immunizations as of yet. Patient denying chance of . No fever. Patient states she really is here to obtain a work note. No headache, no fever or chills, no changes in vision or hearing, no sore throat or difficulty with speech, no neck pain, no chest pain or shortness of breath, no abdominal pain, no changes in urination or bowel movements, no numbness or tingling, no extremity pain, no skin rashes or lesions. - Related Data Home Medications Medication Instructions Recorded Confirmed FLUoxetine HCL [PROzac] 20 mg PO DAILY 03/16/21 03/16/21 Lisdexamfetamine Dimesylate 70 mg PO DAILY 03/16/21 03/16/21 [Vyvanse] OXcarbazepine [Trileptal] 300 mg PO BID 03/16/21 03/16/21 Previous Rx's Medication Instructions Recorded Ondansetron [Zofran ODT] 4 mg PO Q8HR #20 tab 06/18/21 Allergies Allergy/AdvReac Type Severity Reaction Status Date / Time Penicillins Allergy Swelling Verified 06/18/21 00:43 Review of Systems ROS Statement: Those systems with pertinent positive or pertinent negative responses have been documented in the HPI. ROS Other: All systems not noted in ROS Statement are negative. Past Medical History Past Medical History: GERD/Reflux History of Any Multi-Drug Resistant Organisms: None Reported Past Surgical History: Adenoidectomy, Tonsillectomy Past Psychological History: ADD/ADHD, Anxiety, Bipolar, Depression Smoking Status: Current every day smoker Past Alcohol Use History: None Reported Past Drug Use History: Marijuana General Exam - General Exam Comments Initial Comments: Patient in no acute distress. Does not appear to be ill or toxic. Vital signs are reviewed. Limitations: no limitations General appearance: alert, in no apparent distress Head exam: Present: atraumatic, normocephalic, normal inspection Eye exam: Present: normal appearance, PERRL, EOMI. Absent: scleral icterus, conjunctival injection, periorbital swelling ENT exam: Present: normal exam, mucous membranes moist Neck exam: Present: normal inspection. Absent: tenderness, meningismus, lymphadenopathy Respiratory exam: Present: normal lung sounds bilaterally. Absent: respiratory distress, wheezes, rales, rhonchi, stridor Cardiovascular Exam: Present: regular rate, normal rhythm, normal heart sounds. Absent: systolic murmur, diastolic murmur, rubs, gallop, clicks GI/Abdominal exam: Present: soft, normal bowel sounds. Absent: distended, tenderness, guarding, rebound, rigid Extremities exam: Present: normal inspection, full ROM, normal capillary refill. Absent: tenderness, pedal edema, joint swelling, calf tenderness Back exam: Present: normal inspection Neurological exam: Present: alert, oriented X3, CN II-XII intact Psychiatric exam: Present: normal affect, normal mood Skin exam: Present: warm, dry, intact, normal color. Absent: rash Course Vital Signs 06/18/21 00:39 Temperature 97.9 F Pulse Rate 98 Respiratory 20 Rate Blood Pressure 114/65 O2 Sat by Pulse 99 Oximetry Medical Decision Making - Medical Decision Making Patient presents with cephalgia consistent with gastroenteritis. His pulse multiple family members including her son. Does not appear to be ill or toxic. Abdomen soft and benign. Counseled on conservative therapy. Patient refused testing. Follow-up with your regular physician as directed. Return to the ER immediately if any symptoms worsen, new symptoms arise, or any other problems develop. Supervising physicians Dr. Yuan Disposition Clinical Impression: Gastroenteritis Disposition: HOME SELF-CARE Condition: Good Instructions (If sedation given, give patient instructions): Acute Nausea and Vomiting (ED), Acute Diarrhea (ED) Additional Instructions: Follow-up with your regular physician as directed. Return to the ER immediately if any symptoms worsen, new symptoms arise, or any other problems develop.COVID- 19 testing is pending. Quarantine until the results are obtained tomorrow. Prescriptions: Ondansetron [Zofran ODT] 4 mg PO Q8HR #20 tab Is patient prescribed a controlled substance at d/c from ED?: No Referrals: Brittny Combs MD [Primary Care Provider] - 06/23/21 Time of Disposition: 02:10
== END 2021-06-18 02:26 | disposition home or self-care (01) ==
LOC: EC 00:21
DX: K52.9 Noninfective gastroenteritis and colitis, unspecified (principal); R51.9 Headache, unspecified; F17.200 Nicotine dependence, unspecified, uncomplicated; Z86.16 Personal history of COVID-19; Z88.0 Allergy status to penicillin
CPT/HCPCS: 87635; 99284